=== PATIENT | male | born 1975 | race Two or more races ===

== ENCOUNTER 2024-03-07 08:41 | Outpatient (CLI) | payer OTHER ==
[2024-03-07 09:24] LABS: HEMATOCRIT 39.6 % (39.0-48.0); HEMOGLOBIN 13.8 g/dL (13-16.00); MEAN CELL VOLUME 85.7 fL (80.0-100.00); MEAN CORPUSCULAR HEMOGLOBIN 29.8 pg (27.00-32.0); MEAN CORPUSCULAR HGB CONC 34.8 g/dl (32.0-36.0); PLATELET COUNT 245 K/uL (150-450); RED BLOOD COUNT 4.61 M/uL (4.00-6.00); RED CELL DISTRIBUTION WIDTH 13.4 % (11.5-14.5)
[2024-03-07 10:01] LABS: URINE APPEARANCE Clear; URINE BILIRRUBIN Negative (NEGATIVE); URINE BLOOD Negative; URINE COLOR Yellow; URINE GLUCOSE Negative (NEGATIVE); URINE LEUKOCYTE Negative; URINE NITRATE Negative; URINE PROTEIN Negative (NEGATIVE); URINE UROBILINOGEN 0.2 E.U./dl
[2024-03-07 10:05] LABS: URINE BACTERIA 6.2 uL (0.0-1933)
[2024-03-07 10:29] LABS: ALBUMIN 4.1 gm/dL (3.4-5.0); BILIRUBIN TOTAL 0.58 mg/dL (0.3-1.2); CHOL HDL RATIO 3.4 (0-5.0); CREATININE SERUM 1.22 mg/dL (0.70-1.30); GFR 62.62; GLOBULINA 3.8 G/DL (2.4-3.5); POTASSIUM 3.6 mEq/L (3.5-5.1); TOTAL PROTEIN 7.9 gm/dL (6.4-8.2); TSH 1.26 uIU/mL (0.358-3.74)
[2024-03-07 10:34] LABS: URINE EPITHELIAL CELLS 0.4 uL (0.0-38.8); URINE RBC 1.8 uL (0.0-20.8); URINE WBC 1.6 uL (0.0-23.2)
== END 2024-03-07 08:45 | disposition home or self-care (01) ==
LOC: LAB 08:41
PROVIDERS: ATTEND Internal Medicine Cardiovascular Disease
DX: R00.2 Palpitations (principal); I11.9 Hypertensive heart disease without heart failure; E11.9 Type 2 diabetes mellitus without complications; E78.2 Mixed hyperlipidemia

== ENCOUNTER → 2024-12-08 07:17 | Outpatient (CLI) | payer OTHER ==
[2024-12-08 08:34] LABS: PH,URINE 5.5 (5.0-8.0); URINE APPEARANCE Clear; URINE BILIRRUBIN Negative (NEGATIVE); URINE BLOOD Negative; URINE COLOR Yellow; URINE GLUCOSE Negative (NEGATIVE); URINE KETONE Negative (NEGATIVE); URINE LEUKOCYTE Negative; URINE NITRATE Negative; URINE PROTEIN Negative (NEGATIVE); URINE UROBILINOGEN 0.2 E.U./dl
[2024-12-08 08:37] LABS: HEMATOCRIT 41.6 % (39.0-48.0); HEMOGLOBIN 14.1 g/dL (13-16.00); MEAN CELL VOLUME 86.5 fL (80.0-100.00); MEAN CORPUSCULAR HEMOGLOBIN 29.3 pg (27.00-32.0); MEAN CORPUSCULAR HGB CONC 33.8 g/dl (32.0-36.0); PLATELET COUNT 216 K/uL (150-450); RED CELL DISTRIBUTION WIDTH 13.4 % (11.5-14.5)
[2024-12-08 08:38] LABS: URINE BACTERIA 4.8 uL (0.0-1933); URINE RBC 2.7 uL (0.0-20.8)
[2024-12-08 08:48] LABS: URINE EPITHELIAL CELLS 0.9 uL (0.0-38.8); URINE WBC 1.7 uL (0.0-23.2)
[2024-12-08 09:25] LABS: ALBUMIN 4.1 gm/dL (3.4-5.0); BILIRUBIN TOTAL 0.68 mg/dL (0.3-1.2); CREATININE SERUM 1.35 mg/dL (0.70-1.30); GFR 55.72; GLOBULINA 3.6 G/DL (2.4-3.5); POTASSIUM 3.66 mEq/L (3.5-5.1); TOTAL PROTEIN 7.7 gm/dL (6.4-8.2); TSH 1.46 uIU/mL (0.358-3.74)
== END | disposition home or self-care (01) ==
LOC: LAB 07:17
PROVIDERS: ATTEND Internal Medicine Cardiovascular Disease
DX: R00.2 Palpitations (principal); I11.9 Hypertensive heart disease without heart failure; E11.9 Type 2 diabetes mellitus without complications; E78.2 Mixed hyperlipidemia

== ENCOUNTER 2024-12-29 12:34 | Emergency (ER) | payer OTHER ==
[~2024-12-29] VITALS: Ht 182.9 cm; Wt 73.5 kg
[2024-12-29] MEDS ORDERED: IRBESARTAN-HCT1 EAC1 PO (13:57)
[2024-12-29] MEDS ORDERED: CEFTRIAXONE SODIUM 1,000 MG VIAL IV STA (14:19)
[2024-12-29] MEDS ORDERED: CEFTRIAXONE SODIUM 1,000 MG VIAL ONE (14:30)
[2024-12-29 15:17] LABS: HEMATOCRIT 41.5 % (39.0-48.0); HEMOGLOBIN 14.1 g/dL (13-16.00); MEAN CELL VOLUME 85.5 fL (80.0-100.00); MEAN CORPUSCULAR HEMOGLOBIN 29.1 pg (27.00-32.0); MEAN CORPUSCULAR HGB CONC 34.1 g/dl (32.0-36.0); PLATELET COUNT 274 K/uL (150-450); RED BLOOD COUNT 4.85 M/uL (4.00-6.00); RED CELL DISTRIBUTION WIDTH 13.3 % (11.5-14.5)
[2024-12-29] MEDS ORDERED: PEPCID20 MG PO (17:10)
[2024-12-29] MEDS ORDERED: TYLENOL ARTHRI650 MG PO (17:10)
[2024-12-29] MEDS ORDERED: CEPHALEXIN500 M1 PO (17:10)
== END 2024-12-29 17:42 | disposition home or self-care (01) ==
LOC: ER 12:35
PROVIDERS: General Practice
DX: L03.90 Cellulitis, unspecified (principal); I10 Essential (primary) hypertension

== ENCOUNTER 2025-07-20 07:26 | Outpatient (CLI) | payer OTHER ==
[~2025-07-20 07:26] MED LIST: CEPHALEXIN500 M1 PO; IRBESARTAN-HCT1 EAC1 PO; PEPCID20 MG PO; TYLENOL ARTHRI650 MG PO
[2025-07-20 09:15] LABS: URINE APPEARANCE Clear; URINE BILIRRUBIN Negative (NEGATIVE); URINE BLOOD Negative; URINE COLOR Yellow; URINE GLUCOSE Negative (NEGATIVE); URINE KETONE Negative (NEGATIVE); URINE LEUKOCYTE Negative; URINE NITRATE Negative; URINE PROTEIN Negative (NEGATIVE); URINE UROBILINOGEN 0.2 E.U./dl
[2025-07-20 09:22] LABS: URINE BACTERIA 8.3 uL (0.0-1933); URINE EPITHELIAL CELLS 1.6 uL (0.0-38.8); URINE WBC 3.3 uL (0.0-23.2)
[2025-07-20 09:28] LABS: BASO % 0.7 % (0.1-1.2); EOS # 0.08 (0.04-0.54); EOS % 1.9 % (0.7-7.0); LYMPH # 1.62 (1.18-3.74); LYMPH % 37.9 % (19.3-53.1); MEAN PLATELET VOLUME 11.40 fl (9.4-12.4); MONO # 0.37 (0.24-0.82); MONO % 8.6 % (4.7-12.5); NEUT # 2.17 (1.56-6.13); NEUT % 50.7 % (34.0-71.1); RED CELL DISTRIBUTION WIDTH 12.7 % (11.6-14.4)
[2025-07-20 09:31] LABS: URINE CAST 0.14 uL (0.0-1.40); URINE RBC 0.8 uL (0.0-20.8)
[2025-07-20 10:49] LABS: ALT/SGPT 25.0 U/L (12-78); AST/SGOT 22.0 U/L (15-37); BILIRUBIN TOTAL 0.55 mg/dL (0.3-1.2); BUN CREA RATIO 10.0 (7.0-25.0); CHOL HDL RATIO 2.9 (0-5.0); CREATININE SERUM 1.5 mg/dL (0.70-1.30); GFR 49.14; GLOBULINA 3.4 G/DL (2.4-3.5); GLUCOSE FASTING 105.0 mg/dL (65-100); HDL 52.0 mg/dl (40-60); LDL 84.0 mg/dl (0-130); OSMOLALITY SERUM 288.0 MOSM/KG (275-295); TSH 1.39 uIU/mL (0.358-3.74); VLDL 15.0 (0-39)
== END 2025-07-20 07:29 | disposition home or self-care (01) ==
LOC: LAB 07:26
DX: R00.2 Palpitations (principal); I11.9 Hypertensive heart disease without heart failure; E11.9 Type 2 diabetes mellitus without complications; E78.2 Mixed hyperlipidemia

== ENCOUNTER 2025-08-17 07:15 | Outpatient (CLI) | payer OTHER ==
[2025-08-17 09:21] LABS: BUN CREA RATIO 11.0 (7.0-25.0); CREATININE SERUM 1.29 mg/dL (0.70-1.30); GFR 58.49; GLUCOSE FASTING 105.0 mg/dL (65-100); OSMOLALITY SERUM 286.0 MOSM/KG (275-295)
== END 2025-08-17 07:18 | disposition home or self-care (01) ==
LOC: LAB 07:15
PROVIDERS: ATTEND Internal Medicine Cardiovascular Disease
DX: E11.9 Type 2 diabetes mellitus without complications (principal)

== ENCOUNTER → 2025-09-08 | Emergency (ER) | payer OTHER ==
[~2025-09-08] VITALS: Ht 182.9 cm; Wt 77.1 kg
[~2025-09-08] MED LIST changes: +ACETAMINOPHEN500 M1 PO; +AMLODIPINE-OLM1 EAC2 PO; +AZITHROMYCIN500 MG PO; +GILTUSS COUGH-118 M1 PO; +NORVASC5 MG PO
[2025-09-08 14:37] LABS: BASO % 0.3 % (0.1-1.2); EOS # 0.04 (0.04-0.54); EOS % 0.4 % (0.7-7.0); LYMPH # 1.70 (1.18-3.74); LYMPH % 17.3 % (19.3-53.1); MEAN PLATELET VOLUME 10.30 fl (9.4-12.4); MONO # 0.70 (0.24-0.82); MONO % 7.1 % (4.7-12.5); NEUT # 7.31 (1.56-6.13); NEUT % 74.6 % (34.0-71.1); RED CELL DISTRIBUTION WIDTH 12.5 % (11.6-14.4)
[2025-09-08 15:09] LABS: COVID-19 AG NEGATIVE (NEGATIVE)
[2025-09-08 15:21] LABS: ALT/SGPT 163.0 U/L (12-78); AST/SGOT 58.0 U/L (15-37); BILIRUBIN TOTAL 0.58 mg/dL (0.3-1.2); BUN CREA RATIO 8.0 (7.0-25.0); CREATININE SERUM 1.03 mg/dL (0.70-1.30); GFR 75.83; GLOBULINA 4.3 G/DL (2.4-3.5); GLUCOSE FASTING 101.0 mg/dL (65-100); OSMOLALITY SERUM 282.0 MOSM/KG (275-295)
== END | disposition home or self-care (01) ==
LOC: ER 09:35
PROVIDERS: Preventive Medicine Public Health & General Preventive Medicine
DX: J06.9 Acute upper respiratory infection, unspecified (principal); J00 Acute nasopharyngitis [common cold]; R50.9 Fever, unspecified; R05.8 Other specified cough; I10 Essential (primary) hypertension; Z20.822 Contact with and (suspected) exposure to COVID-19